=== PATIENT | male | born 1950 | race Hispanic/Latino ===

== ENCOUNTER 2022-12-11 09:22 | Emergency (ER) | payer OTHER ==
--- OUTSIDE RECORDS SUMMARY | 2022-12-11 09:27 | XMS REPORT | Continuity of Care Document ---
:1950 Author Organization [facility] t Address [address] [place] [id number] Care Team Providers Name Role Phone ARMANDO SPICER Attending Clinician Unavailable Payers Payer Name Policy Type Policy Number Effective Date Expiration Date S michael [employer] [employer] 7 [id number] 2022 00:00:00 Problems This patient has no known problems. Allergies, Adverse Reactions, Alerts This patient has no known allergies or adverse reactions. Medications This patient has no known medications. Procedures This patient has no known procedures. Encounters Start End Encounter Admission Attending Care Care Encounter Source Date/Time Date/Time Type Type Clinicians Facility Department ID 2023-01-02 2023-01-02 Outpatient TRACIE SPICER [id number] Tracie 09:00:00 09:00:00 ARMANDO gu Results This patient has no known results.
--- NOTE | 2022-12-11 10:31 | ER ---
Nurse's Notes [facility] Jessica Name: Kerwin Sanchez Age: 72 yrs Sex: Male : 1950 Arrival Date: 12/11/2022 Time: 09:22 Bed 11 Private MD: Diagnosis: Pain in right knee;Osteoarthritis of knee, unspecified Presentation: 12/11 10:23 Chief complaint: Patient states: R knee pain since stumbling in September. Coronavirus ll1 screen: Vaccine status: Patient reports receiving the 2nd dose of the covid vaccine. Client denies travel out of the [place] in the last 14 days. At this time, the client does not indicate any symptoms associated with coronavirus-19. Ebola Screen: Patient denies travel to an Ebola-affected area in the 21 days before illness onset. Initial Sepsis Screen: Does the patient meet any 2 criteria? No. Patient's initial sepsis screen is negative. Does the patient have a suspected source of infection? Yes: Bone or joint infection. Risk Assessment: Do you want to hurt yourself or someone else? Patient reports no desire to harm self or others. Onset of symptoms was September 16, 2022. 10:23 Method Of Arrival: Wheelchair ll1 10:23 Acuity: JACQUELYN 4 ll1 Historical: - Allergies: 10:22 No Known Allergies; ll1 - PMHx: 10:22 None; ll1 - PSHx: 10:22 cataract repair; ll1 - Immunization history:: Adult Immunizations up to date. - Social history:: Smoking status: Patient reports the use of cigarette tobacco products, 02/25 PPD. Screenin:43 [facility] ED Fall Risk Assessment (Adult) History of falling in the last 3 months, ph including since admission No falls in past 3 months (0 pts) Score/Fall Risk Level 0 - 2 = Low Risk Oriented to surroundings, Maintained a safe environment, Hourly rounding (assess needs \T\ fall precautionary measures) done. Abuse screen: Denies threats or abuse. Denies injuries from another. Nutritional screening: No deficits noted. Tuberculosis screening: No symptoms or risk factors identified. Assessment: 11:34 Reassessment: No changes from previously documented assessment. Patient and/or family ll1 updated on plan of care and expected duration. Pain level reassessed. Patient is alert, oriented x 3, equal unlabored respirations, skin warm/dry/pink. Vital Signs: 10:23 BP 180 / 89; Pulse 107; Resp 17; Temp 98.6; Pulse Ox 98% on R/A; Weight 99.79 kg; ll1 Height 5 ft. 6 in. ; Pain 9/10; 13:43 BP 161 / 72; Pulse 77; Resp 18; Temp 97.5; Pulse Ox 97% on R/A; ph 10:23 Body Mass Index 35.51 (99.79 kg, 167.64 cm) ll1 10:23 Pain Scale: Adult ll1 ED Course: 09:25 Patient arrived in ED. mr 09:31 Sravanthi Griffin FNP-C is PHCP. snw 09:31 Erin Catalan MD is Attending Physician. snw 10:22 Arm band placed on Patient placed in an exam room, on a stretcher. ll1 10:25 Triage completed. ll1 11:32 US Extremity Venous Unilateral Ltd In Process Unspecified. EDMS 12:53 Knee Right 3 View XRAY In Process Unspecified. EDMS 13:30 Jessica Ortiz, RN is Primary Nurse. ph 13:43 Patient has correct armband on for positive identification. ph 13:43 Charles wrap to right knee. ph 13:44 No provider procedures requiring assistance completed. Patient did not have IV access ph during this emergency room visit. Administered Medications: 11:34 Drug: HYDROcodone-acetaminophen PO 5 mg-325 mg 1 tabs PO once Route: PO; ll1 13:42 Follow up: Response: No adverse reaction; Pain is decreased ph Medication: 13:43 VIS not applicable for this client. ph Outcome: 10:30 Discharge ordered by . snw 13:19 Discharge ordered by . snw 13:44 Discharged to home via wheelchair, with family, ph 13:44 Condition: good 13:44 Discharge instructions given to patient, family, Instructed on discharge instructions, follow up and referral plans. medication usage, Demonstrated understanding of instructions, follow-up care, medications, Prescriptions given X 2, 13:44 Patient left the ED. ph Signatures: Dispatcher [employer] EDMS Sravanthi Griffin FNP-C [employer] WORKER-Csnw Radha Chaudhari, Reg Reg mr Jessica Ortiz RN RN ph Maury Lopez RN RN ll1 Corrections: (The following items were deleted from the chart) 11:29 10:23 BP 180 / 89; Pulse 107bpm; Resp 17bpm; Pulse Ox 98% RA; Temp 98.6F; Height 5 ft. ll1 6 in.; Pain 10/26, Adult; ll1
--- NOTE | 2022-12-11 10:31 | EDPHYS ---
Physician Documentation [facility] Name: Kerwin Sanchez Age: 72 yrs Sex: Male : 1950 Arrival Date: 12/11/2022 Time: 09:22 Bed 11 Private MD: ED Physician Erin Catalan HPI: 12/11 11:22 This 72 yrs old Male presents to ER via Wheelchair with complaints of Knee snw Injury. 11:22 The patient presents with pain, that is acute. The complaints affect the lateral aspect snw of right knee and posterior aspect of right knee. Context: The problem was sustained at home, resulted from the patient tripping, tripped and twisted knee in September. Pain to lateral side and posteriorly since that time. Onset: The symptoms/episode began/occurred gradually. Associated signs and symptoms: Pertinent positives: swelling. Severity of symptoms: At their worst the symptoms were moderate. The patient has not experienced similar symptoms in the past. It is unknown whether or not the patient has recently seen a physician. Historical: - Allergies: 10: No Known Allergies; ll1 - PMHx: 10: None; ll1 - PSHx: 10:22 cataract repair; ll1 - Immunization history:: Adult Immunizations up to date. - Social history:: Smoking status: Patient reports the use of cigarette tobacco products, 02/25 PPD. ROS: 11:27 Constitutional: Negative for fever, chills, and weight loss, Eyes: Negative for injury, snw pain, redness, and discharge, ENT: Negative for injury, pain, and discharge, Neck: Negative for injury, pain, and swelling, Cardiovascular: Negative for chest pain, palpitations, and edema, Respiratory: Negative for shortness of breath, cough, wheezing, and pleuritic chest pain, Abdomen/GI: Negative for abdominal pain, nausea, vomiting, diarrhea, and constipation, Back: Negative for injury and pain, : Negative for injury, bleeding, discharge, and swelling, Skin: Negative for injury, rash, and discoloration, Neuro: Negative for headache, weakness, numbness, tingling, and seizure, Psych: Negative for depression, anxiety, suicide ideation, homicidal ideation, and hallucinations, 11:27 MS/extremity: Positive for swelling, tenderness, of the posterior aspect of right knee and lateral aspect of right knee, Exam: 11:27 Constitutional: This is a well developed, well nourished patient who is awake, alert, snw and in no acute distress. Head/Face: Normocephalic, atraumatic. Eyes: Pupils equal round and reactive to light, extra-ocular motions intact. Lids and lashes normal. Conjunctiva and sclera are non-icteric and not injected. Cornea within normal limits. Periorbital areas with no swelling, redness, or edema. ENT: Nares patent. No nasal discharge, no septal abnormalities noted. Tympanic membranes are normal and external auditory canals are clear. Oropharynx with no redness, swelling, or masses, exudates, or evidence of obstruction, uvula midline. Mucous membranes moist. Neck: Trachea midline, no thyromegaly or masses palpated, and no cervical lymphadenopathy. Supple, full range of motion without nuchal rigidity, or vertebral point tenderness. No Meningismus. Chest/axilla: Normal chest wall appearance and motion. Nontender with no deformity. No lesions are appreciated. Cardiovascular: Tachycardic rate and rhythm with a normal S1 and S2. No gallops, murmurs, or rubs. Normal PMI, no JVD. No pulse deficits. Respiratory: Lungs have equal breath sounds bilaterally, clear to auscultation and percussion. No rales, rhonchi or wheezes noted. No increased work of breathing, no retractions or nasal flaring. Abdomen/GI: Soft, non-tender, with normal bowel sounds. No distension or tympany. No guarding or rebound. No evidence of tenderness throughout. Back: No spinal tenderness. No costovertebral tenderness. Full range of motion. Skin: Warm, dry with normal turgor. Normal color with no rashes, no lesions, and no evidence of cellulitis. Neuro: Awake and alert, GCS 15, oriented to person, place, time, and situation. Cranial nerves II-XII grossly intact. Motor strength 5/5 in all extremities. Sensory grossly intact. Cerebellar exam normal. Normal gait. Psych: Awake, alert, with orientation to person, place and time. Behavior, mood, and affect are within normal limits. 11:27 Musculoskeletal/extremity: Extremities: grossly normal except: noted in the lateral aspect of right knee and posterior aspect of right knee: swelling, tenderness, ROM: limited active range of motion due to pain, limited passive range of motion due to pain, Circulation is intact in all extremities. Vital Signs: 10:23 BP 180 / 89; Pulse 107; Resp 17; Temp 98.6; Pulse Ox 98% on R/A; Weight 99.79 kg; ll1 Height 5 ft. 6 in. ; Pain 9/10; 13:43 BP 161 / 72; Pulse 77; Resp 18; Temp 97.5; Pulse Ox 97% on R/A; ph 10:23 Body Mass Index 35.51 (99.79 kg, 167.64 cm) ll1 10:23 Pain Scale: Adult ll1 MDM: 10:30 Patient medically screened. snw 11:28 Differential diagnosis: closed fracture, contusion, tendonitis, meniscal injury. Data snw reviewed: vital signs, nurses notes. I considered the following discharge prescriptions or medication management in the emergency department Medications were administered in the Emergency Department. See APR. 13:21 Counseling: I had a detailed discussion with the patient and/or guardian regarding the snw historical points, exam findings, and any diagnostic results supporting the discharge/admit diagnosis, the presence of at least one elevated blood pressure reading (>120/80) during this emergency department visit, radiology results, the need for outpatient follow up, for definitive care, a orthopedic surgeon, to return to the emergency department if symptoms worsen or persist or if there are any questions or concerns that arise at home. Response to treatment: the patient's symptoms have markedly improved after treatment. Special discussion: I have referred the patient to see his PCP for further evaluation of high blood pressure. Based on the history and exam findings, there is no indication for further emergent testing or inpatient evaluation. I discussed with the patient/guardian the need to see the orthopedic surgeon for further evaluation of the symptoms. I discussed with the patient/guardian the need to see the primary care provider for further evaluation of the symptoms. 12/11 11:08 Order name: Knee Right 3 View XRAY; Complete Time: 13:18 snw 12/11 11:08 Order name: US Extremity Venous Unilateral Ltd; Complete Time: 11:41 snw 12/11 13:18 Order name: Charles wrap-joint; Complete Time: 13:30 snw Administered Medications: 11:34 Drug: HYDROcodone-acetaminophen PO 5 mg-325 mg 1 tabs PO once Route: PO; ll1 13:42 Follow up: Response: No adverse reaction; Pain is decreased ph Disposition Summary: 12/11/22 13:19 Discharge Ordered Notes: Location: Home(12/11/22 13:19) snw Condition: Stable(12/11/22 13:19) snw Diagnosis - Pain in right knee snw - Osteoarthritis of knee, unspecified snw Followup: snw - With: Emergency Department - When: As needed - Reason: Worsening of condition Followup: snw - With: Private Physician - When: 2 - 3 days - Reason: Recheck today's complaints, Continuance of care, Re-evaluation by your physician Discharge Instructions: - Discharge Summary Sheet snw - Joint Pain snw - How to Use a Knee Brace snw - Osteoarthritis snw - Heat Therapy snw Forms: - Medication Reconciliation Form snw - Thank You Letter snw - Antibiotic Education snw - Prescription Opioid Use snw - Patient Portal Instructions snw - Leadership Thank You Letter snw Prescriptions: - Voltaren Arthritis Pain 1 % Topical gel - apply 4 gram TOPICAL route 2-3 times daily apply to single knee; 50 gram; snw Refills: 0, Product Selection Permitted - Tramadol 50 mg Oral Tablet - take 1 tablet ORAL route every 8 hours as needed; 12 tablet; Refills: 0, snw Product Selection Permitted Signatures: Dispatcher [employer] EDSravanthi Muir FNP-C TOOL [employer]RI[employer] LEAD-Csnw Maury Lopez RN RN ll1 Jessica Ortiz RN ph Corrections: (The following items were deleted from the chart) 10:33 10:30 Home snw snw 10:33 10:30 Stable snw snw 10:33 10:30 Viral infection, unspecified snw snw
--- NOTE | 2022-12-11 11:37 | RAD REPORT ---
EXAM DESCRIPTION: US - Extremity Venous Uni Ltd - 12/11/2022 11:30 am CLINICAL HISTORY: Pain;Swelling Leg swelling and edema. COMPARISON: No comparisons FINDINGS: Right lower extremity venous system was interrogated with Doppler technique. Normal flow, compressibility and augmentation was noted. There is no DVT present. IMPRESSION: No evidence of right lower extremity deep venous thrombosis.
[2022-12-11] MEDS ORDERED: HYDROCODONE/APAP 5/325 MG TAB ONE (11:45)
--- NOTE | 2022-12-11 13:15 | RAD REPORT ---
EXAM DESCRIPTION: RAD - Knee Right 3 View - 12/11/2022 12:51 pm CLINICAL HISTORY: Right knee pain FINDINGS: No fracture or dislocation is seen. Osteoporosis Marked osteoarthritis involves the knee. 12 millimeter and additional smaller calcific densities superior aspect of the right knee may represe nt a loose bodies If patient continues to have symptoms to suggest an occult fracture, ligamentous or meniscal injury M RI would be recommended
[2022-12-11 16:36] VITALS: BP 161/72; TEMP 97.5; O2SAT 97
== END 2022-12-11 13:44 | disposition home or self-care (01) ==
LOC: ER 09:22
DX: S89.91XA Unspecified injury of right lower leg, initial encounter (principal); M25.561 Pain in right knee; M17.11 Unilateral primary osteoarthritis, right knee; F17.210 Nicotine dependence, cigarettes, uncomplicated; W01.0XXA Fall on same level from slipping, tripping and stumbling without subsequent striking against object, initial encounter; Y93.9 Activity, unspecified; Y92.9 Unspecified place or not applicable
CPT/HCPCS: 93971; 99284